=== PATIENT | male | born 1960 | race American Indian/Alaskan Native ===

== ENCOUNTER 2016-12-24 00:17 | Emergency (ER) | payer MEDICAID ==
[2016-12-24] MEDS ORDERED: BENADRYL PO ONE (01:47)
[2016-12-24] MEDS ORDERED: DELTASONE PO ONE (01:47)
--- NOTE | 2016-12-24 02:33 | XRay Report ---
FINAL REPORT EXAM: XR HAND 2V RT HISTORY: right hand sign swelling COMPARISON: None available. FINDINGS: Two views of right hand obtained. Soft tissue swelling at the dorsum of the hand. No focal bony erosive changes. No acute fracture dislocation. Bony structures are intact. Joint spaces are preserved. No acute fracture dislocation. IMPRESSION: Soft tissue swelling at the dorsum of the hand. No associated acute bony findings.
[2016-12-24 04:00] LABS: Basophils % (Auto) 0.2 % (0.0-1.8); Eosinophils % (Auto) 2.1 % (0.0-4.3); Hemoglobin 13.7 gm/dl (11.8-15.2); Mean Corpuscular HGB Conc 33 % (32-34); Mean Corpuscular Hemoglobin 27 pg (28-32); Mean Corpuscular Volume 83 fl (84-94); Platelet Count 239 K/mm3 (140-440); Red Blood Count 5.09 M/mm3 (3.65-5.03); Red Cell Distribution Width 15.5 % (13.2-15.2); White Blood Count 13.2 K/mm3 (4.5-11.0)
[2016-12-24 04:20] LABS: Anion Gap 17 mmol/L; BUN/Creatinine Ratio 18.75; Blood Urea Nitrogen 15 mg/dL (9-20); Calcium 9.3 mg/dL (8.4-10.2); Carbon Dioxide 24 mmol/L (22-30); Creatine Kinase 281 units/L (55-170); Glucose 120 mg/dL (75-100); Potassium 4.3 mmol/L (3.6-5.0); Sodium 137 mmol/L (137-145)
--- NOTE | 2016-12-24 06:40 | Emergency Department Report ---
HPI - General Chief Complaint: Allergic Reaction Time Seen by Provider: 12/24/16 06:32 - HPI HPI: Room 19 The patient is a 56-year-old male presenting with a chief complaint of right hand pain and swelling. The patient states yesterday afternoon at approximately 12:30 when he went to picker a soda he was stung in the palm of his right hand by a bee. The patient states his pulled out the stinger and hours later noticed swelling of the right hand. The patient states the swelling continued to increase when he came to the ED for evaluation. Patient also complains of right shoulder stiffness. Patient denies shortness of breath or fever Location: Right hand Duration: Since since 12:30 yesterday afternoon Quality: Swelling Severity: Moderate Modifying factors: [see above] Context: [see above] Mode of transportation: Unknown ED Past Medical Hx - Past Medical History Previous Medical History?: No - Surgical History Past Surgical History?: Yes Additional Surgical History: shoulder sx - Family History Family history: no significant - Social History Smoking Status: Never Smoker Substance Use Type: None - Medications Home Medications: Home Medications Medication Instructions Recorded Confirmed Last Taken Type Famotidine [Pepcid] 20 mg PO BID #6 tablet 12/24/16 Unknown Rx HYDROcodone/APAP 5-325 [[place] 1 - 2 each PO Q6HR PRN #10 tablet 12/24/16 Unknown Rx 5/325] Prednisone [predniSONE 10 mg 10 mg PO .TAPER #1 tab.ds.pk 12/24/16 Unknown Rx (6-Day Pack, 21 Tabs)] diphenhydrAMINE [Benadryl CAP] 50 mg PO Q8H #12 capsule 12/24/16 Unknown Rx ED Review of Systems ROS: Stated complaint: BEE STING Other details as noted in HPI Comment: All other systems reviewed and negative Constitutional: denies: chills, fever Eyes: denies: eye pain, eye discharge, vision change ENT: denies: ear pain, throat pain Respiratory: denies: cough, shortness of breath, wheezing Cardiovascular: denies: chest pain, palpitations Endocrine: no symptoms reported Gastrointestinal: denies: abdominal pain, nausea, diarrhea Genitourinary: denies: urgency, dysuria Musculoskeletal: arthralgia Skin: other (right hand swelling) Neurological: denies: headache, weakness, paresthesias Psychiatric: denies: anxiety, depression Hematological/Lymphatic: denies: easy bleeding, easy bruising Physical Exam - Physical Exam Vital Signs: Vital Signs 12/24/16 12/24/16 12/24/16 00:25 01:38 05:19 Temperature 91 F L 99 F 98.0 F Pulse Rate 91 H 91 H 73 Respiratory 18 18 20 Rate Blood Pressure 168/108 Blood Pressure 168/108 169/103 [Right] O2 Sat by Pulse 100 100 99 Oximetry 12/24/16 05:28 Temperature Pulse Rate Respiratory 20 Rate Blood Pressure Blood Pressure [Right] O2 Sat by Pulse 99 Oximetry Physical Exam: GENERAL: The patient is well-developed well-nourished male lying on stretcher not appearing to be in acute distress. [] HEENT: Normocephalic. Atraumatic. Extraocular motions are intact. NECK: Supple. Trachea midline CHEST/LUNGS: Clear to auscultation. There is no respiratory distress noted. HEART/CARDIOVASCULAR: Regular. There is no tachycardia. There is no gallop rub or murmur. ABDOMEN: Abdomen is soft, nontender. Patient has normal bowel sounds. There is no abdominal distention. SKIN: There is moderate swelling of the right hand. There is no stinger seen in the patient's palm. No evidence of cellulitis present. There is no diaphoresis. NEURO: The patient is awake, alert, and oriented. The patient is cooperative. The patient has normal speech MUSCULOSKELETAL: There is no tenderness along the flexor tendons of the right hand. There is marked edema of the right hand. There is no limitation range of motion. ED Course Vital Signs 12/24/16 12/24/16 12/24/16 00:25 01:38 05:19 Temperature 91 F L 99 F 98.0 F Pulse Rate 91 H 91 H 73 Respiratory 18 18 20 Rate Blood Pressure 168/108 Blood Pressure 168/108 169/103 [Right] O2 Sat by Pulse 100 100 99 Oximetry 12/24/16 05:28 Temperature Pulse Rate Respiratory 20 Rate Blood Pressure Blood Pressure [Right] O2 Sat by Pulse 99 Oximetry ED Medical Decision Making - Lab Data Result diagrams: 12/24/16 03:31 12/24/16 03:31 Laboratory Tests 12/24/16 12/24/16 12/24/16 03:31 03:31 03:31 WBC 13.2 H RBC 5.09 H Hgb 13.7 Hct 42.0 MCV 83 L MCH 27 L MCHC 33 RDW 15.5 H Plt Count 239 Lymph % (Auto) 14.9 [place] % (Auto) 4.7 Eos % (Auto) 2.1 Baso % (Auto) 0.2 Lymph # 2.0 [place] # 0.6 Eos # 0.3 Baso # 0.0 Seg Neutrophils % 78.1 H Seg Neutrophils # 10.3 H Sodium 137 Potassium 4.3 Chloride 100.0 Carbon Dioxide 24 Anion Gap 17 BUN 15 Creatinine 0.8 Estimated GFR > 60 BUN/Creatinine Ratio 18.75 Glucose 120 H Lactic Acid Calcium 9.3 Total Creatine Kinase 281 H Blood Type B POSITIVE Antibody Screen Negative 12/24/16 03:31 WBC RBC Hgb Hct MCV MCH MCHC RDW Plt Count Lymph % (Auto) [place] % (Auto) Eos % (Auto) Baso % (Auto) Lymph # [place] # Eos # Baso # Seg Neutrophils % Seg Neutrophils # Sodium Potassium Chloride Carbon Dioxide Anion Gap BUN Creatinine Estimated GFR BUN/Creatinine Ratio Glucose Lactic Acid 0.90 Calcium Total Creatine Kinase Blood Type Antibody Screen - Radiology Data Radiology results: report reviewed (right hand x-ray), image reviewed (right hand x-ray) interpreted by me: Right hand x-ray-no acute fracture, no foreign bodies Right hand x-ray (as read by radiologist)-soft tissue swelling of the dorsum of the hand. No associated acute bony findings - Differential Diagnosis allergic reaction, Hymenoptera envenomation Critical care attestation.: If time is entered above; I have spent that time in minutes in the direct care of this critically ill patient, excluding procedure time. ED Disposition Clinical Impression: Hymenoptera sting, Hymenoptera reaction Disposition: DC-01 TO HOME OR SELFCARE Is pt being admited?: No Does the pt Need Aspirin: No Condition: Stable Instructions: Insect Bite or Sting (ED) Additional Instructions: Return to the emergency department immediately should you develop worsening symptoms, fever, inability to tolerate food or liquid or any other concerns. Prescriptions: diphenhydrAMINE [Benadryl CAP] 50 mg PO Q8H #12 capsule Famotidine [Pepcid] 20 mg PO BID #6 tablet HYDROcodone/APAP 5-325 [[place] 5/325] 1 - 2 each PO Q6HR PRN #10 tablet PRN Reason: Pain Prednisone [predniSONE 10 mg (6-Day Pack, 21 Tabs)] 10 mg PO .TAPER #1 tab.ds.pk Referrals: PRIMARY CARE, [Primary Care Provider] - 3-5 Days THI SAGASTUME MD [Staff Physician] - 3-5 Days [facility] [Outside] - 3-5 Days PETER RENO MD [Staff Physician] - [facility] (Dr. Reno is an orthopedic surgeon. Please follow-up with him for further evaluation of your hand) Time of Disposition: 06:47
[2016-12-24 06:59] VITALS: BP 132/83
== END 2016-12-24 07:21 | disposition home or self-care (01) ==
LOC: ED 00:17
DX: T63.441A Toxic effect of venom of bees, accidental (unintentional), initial encounter (principal)
CPT/HCPCS: 29125; 36415; 73120; 80048; 82140; 82550; 85025; 86850; 86900; 86901; 87040; 99284; J7512